=== PATIENT | female | born 1985 | race Hispanic/Latino ===

== ENCOUNTER 2016-10-23 01:26 | Emergency (ER) | payer OTHER ==
[2016-10-23 01:30] VITALS: BMI 25.7
[2016-10-23 01:38] VITALS: BP 100/76; PULSE 78; RESP 18; TEMP 97.5; O2SAT 100
[2016-10-23] MEDS ORDERED: Sodium Chloride 0.9% 1,000 ML IV STA (01:48)
--- NOTE | 2016-10-23 01:52 | ED PDOC ---
Arrival/HPI - General Historian: Patient - History of Present Illness Time/Duration: 1 hour Symptom Onset: Sudden <Sarah Bahena - Last Filed: 10/23/16 03:25> - History of Present Illness Symptom Course: Improving Severity Level: Mild Context: Home <RangelDagoberto - Last Filed: 10/23/16 04:30> - General Chief Complaint: Syncope Time Seen by Provider: 10/23/16 01:37 - History of Present Illness Narrative History of Present Illness (Text): 10/23/16 01:52 31 year old female with no significant past medical history presents to [facility] ED complaining of weakness and an episode of syncope 1 hour ago. Patient reports the symptoms started after she finished having sex with her boyfriend. She felt her legs being heavy at first, then slowly sat down on the floor and eventually loss consciousness. Patient boyfriend witnessed and states patient was unconscious for approximately 20 seconds. Patient states she had just finished her menstrual cycle this morning. Denies having abnormal amount of bleeding during this menstrual cycle. Patient denies having history of seizure or cardiovascular diseases. Patient further denies headache, fever, chills, shortness of breath, chest pain, abdominal pain, pelvic pain, diarrhea, urinary symptoms, nausea or vomiting. (Sarah Bahena) Past Medical History - Provider Review Nursing Documentation Reviewed: Yes - Reproductive Menopause: No - Psychiatric Hx Substance Use: No <Sarah Bahena - Last Filed: 10/23/16 03:25> Family/Social History - Physician Review Nursing Documentation Reviewed: Yes Family/Social History: No Known Family HX Smoking Status: no Hx Alcohol Use: No Hx Substance Use: No <BahenaSarah - Last Filed: 10/23/16 03:25> Allergies/Home Meds <Sarah Bahena - Last Filed: 10/23/16 03:25> <RangelDagoberto - Last Filed: 10/23/16 04:30> Allergies/Adverse Reactions: Allergies No Known Allergies Allergy (Verified 10/23/16 01:30) Review of Systems - Physician Review All systems were reviewed & negative as marked: Yes - Review of Systems Constitutional: absent: Fevers, Night Sweats Eyes: Normal. absent: Vision Changes, Photophobia ENT: Normal. absent: Rhinorrhea, Epistaxis Respiratory: Normal. absent: SOB, Cough, Wheezing Cardiovascular: Syncope. absent: Chest Pain Gastrointestinal: Normal. absent: Abdominal Pain, Constipation, Diarrhea, Nausea, Vomiting Musculoskeletal: Normal. absent: Back Pain, Myalgias Skin: Normal. absent: Rash Neurological: Dizziness. absent: Headache, Seizure Endocrine: Normal. absent: Diaphoresis, Polyuria, Polydipsia Hemo/Lymphatic: Normal Psychiatric: Normal <Sarah Bahena - Last Filed: 10/23/16 03:25> Physical Exam Vital Signs Reviewed: Yes Temperature: Afebrile Blood Pressure: Normal Pulse: Regular Respiratory Rate: Normal Appearance: Positive for: Well-Appearing, Non-Toxic, Comfortable Pain Distress: None Mental Status: Positive for: Alert and Oriented X 3 - Systems Exam Head: Present: Atraumatic, Normocephalic Pupils: Present: PERRL Extroacular Muscles: Present: EOMI Conjunctiva: Present: Normal Mouth: Present: Moist Mucous Membranes Pharnyx: No: ERYTHEMA, EXUDATE Neck: Present: Normal Range of Motion Respiratory/Chest: Present: Clear to Auscultation, Good Air Exchange. No: Respiratory Distress, Accessory Muscle Use Cardiovascular: Present: Regular Rate and Rhythm, Normal S1, S2. No: Murmurs Abdomen: Present: Normal Bowel Sounds. No: Tenderness, Distention, Peritoneal Signs, Guarding, Mass/Organomegaly Back: Present: Normal Inspection Upper Extremity: Present: Normal Inspection, Neurovascularly Intact. No: Cyanosis, Edema Lower Extremity: Present: Normal Inspection, Neurovascularly Intact. No: Edema Neurological: Present: GCS=15, CN II-XII Intact, Speech Normal Skin: Present: Warm, Dry, Normal Color. No: Rashes Psychiatric: Present: Alert, Oriented x 3, Normal Insight, Normal Concentration <Sarah Bahena - Last Filed: 10/23/16 03:25> Vital Signs Temp Pulse Resp BP Pulse Ox 10/23/16 01:30 97.5 F L 78 18 100/76 100 Medical Decision Making <Sarah Bahena - Last Filed: 10/23/16 03:25> <Dagoberto Multani - Last Filed: 10/23/16 04:30> ED Course and Treatment: 10/23/16 02:18 -IVF -EKG -CBC, BMP -UA -Orthostatic BP -Reassess DDx: Vasovagal, dehydration, anemia, hypoglycemia 10/23/16 02:59 Progress note: Patient seen and examined at bedside. Not in acute distress, symptoms resolved. (Sarah Bahena) 10/23/16 04:29 Patient seen and evaluated with resident. Agree with HPI, clinical findings, plan and treatment. Patient is a 31 year old female who presents to the emergency department complaining of generalized weakness and 1 episode of witnessed syncope s/p sexual intercourse. According to boyfriend, who witnessed the syncope, patient was unconscious for about 20 seconds. Ordered EKG, Labs, and urinalysis. Patient feels much better now. Will discharge patient home. Advised to present to emergency department for worsening symptoms and follow up with PMD within few days. (Dagoberto Multani) - Lab Interpretations Lab Results: 10/23/16 02:01 10/23/16 02:01 Lab Results 10/23/16 02:13: Urine Color Yellow, Urine Appearance Clear, Urine pH 6.5, Ur Specific [place] 1.010, Urine Protein Negative, Urine Glucose (UA) Negative, Urine Ketones Negative, Urine Blood Trace-lysed H, Urine Nitrate Negative, Urine Bilirubin Negative, Urine Urobilinogen 0.2, Ur Leukocyte Esterase Negative , Urine RBC 0 - 2, Urine WBC 0 - 2, Ur Epithelial Cells 0 - 2, Urine HCG, Qual Negative 10/23/16 02:01: WBC 9.7, RBC 4.34, Hgb 12.9, Hct 38.0, MCV 87.6, MCH 29.7, MCHC 33.9, RDW 12.5, Plt Count 341, MPV 9.2, Gran % 54.4, Lymph % (Auto) 37.8 H, [place] % (Auto) 4.6, Eos % (Auto) 2.8, Baso % (Auto) 0.4, Gran # 5.28, Lymph # 3.7 H, [place] # 0.5, Eos # 0.3, Baso # 0.04, D-Dimer, Quantitative 0.30, Sodium 138, Potassium 3.6, Chloride 103, Carbon Dioxide 26, Anion Gap 13, BUN 16, Creatinine 0.8, Est GFR ( Amer) > 60, Est GFR (Non-Af Amer) > 60, Random Glucose 100, Calcium 8.8 - EKG Interpretation EKG Interpretation (Text): 10/23/16 03:25 EKG showed NSR @72 bpm with no acute ST changes. Read by me. (Sarah Bahena) - Medication Orders Current Medication Orders: Discontinued Medications Sodium Chloride (Sodium Chloride 0.9%) 1,000 mls @ 999 mls/hr IV .Q1H1M STA Stop: 10/23/16 02:48 Last Admin: 10/23/16 01:48 Dose: 999 MLS/HR eMAR Start Stop Document 10/23/16 01:48 FJA (Rec: 10/23/16 02:24 FJA [id number]) Intravenous Solution Start Date 10/23/16 Start Time 01:48 End Date 10/23/16 End time 02:49 Total Infusion Time 61 <Sarah Bahena - Last Filed: 10/23/16 03:25> - PA / ANNUAL GIVING OFFICER / Resident Statement / has reviewed & agrees with the documentation as recorded. / has examined the patient and agrees with the treatment plan. <Dagoberto Multani - Last Filed: 10/23/16 04:30> - Scribe Statement Stuart Guerrero Provider Scribe Attestation: All medical record entries made by the Scribe were at my direction and personally dictated by me. I have reviewed the chart and agree that the record accurately reflects my personal performance of the history, physical exam, medical decision making, and the department course for this patient. I have also personally directed, reviewed, and agree with the discharge instructions and disposition. (Dagoberto Multani) Disposition/Present on Arrival - Present on Arrival Any Indicators Present on Arrival: No History of DVT/PE: No History of Uncontrolled Diabetes: No Urinary Catheter: No History of Decub. Ulcer: No History Surgical Site Infection Following: None - Disposition Have Diagnosis and Disposition been Completed?: Yes Disposition Time: 03:08 Patient Plan: Discharge <Sarah Bahena - Last Filed: 10/23/16 03:25> <Dagoberto Multani - Last Filed: 10/23/16 04:30> - Disposition Diagnosis: Vasovagal episode Disposition: HOME/ ROUTINE Condition: GOOD Discharge Instructions (ExitCare): Syncope (ED) Additional Instructions: Danielle Leyva, thank you for letting us take care of you today. Your provider was Dr. Multani. You were treated for vasovagal episode. The emergency medical care you received today was directed at your acute symptoms. If you were prescribed any medication, please fill it and take as directed. It may take several days for your symptoms to resolve. Return to the Emergency Department if your symptoms worsen, do not improve, or if you have any other problems. Please contact your doctor or call one of the physicians/clinics you have been referred to that are listed on the Patient Visit Information form that is included in your discharge packet. Bring any paperwork you were given at discharge with you along with any medications you are taking to your follow up visit. Our treatment cannot replace ongoing medical care by a primary care provider (PCP) outside of the emergency department. Thank you for allowing the [facility] team to be part of your care today. If you had an X-Ray or CT scan: A Radiologist will review the ED reading if any change in treatment is needed we will contact you. If you had a blood, urine, or wound culture: It will take several days for the results, if any change in treatment is needed we will contact you. If you had an STI test: It will take 48 hours for the results. Please call after 1 week if you have not heard back.
[2016-10-23 02:09] LABS: ADD MANUAL DIFF? NO
[2016-10-23 02:26] LABS: PH,URINE 6.5 (4.7-8.0); URINE BILIRUBIN NEGATIVE (NEGATIVE); URINE BLOOD TRACE-LYSED (NEGATIVE); URINE GLUCOSE (UA) NEGATIVE (NEGATIVE); URINE KETONE NEGATIVE (NEGATIVE); URINE LEUKOCYTE ESTERASE NEGATIVE Leu/uL (NEGATIVE); URINE PROTEIN NEGATIVE mg/dL (<30 mg/dL); URINE UROBILINOGEN 0.2 E.U./dL (<1 E.U./dL)
[2016-10-23 02:29] LABS: BASO # 0.04 K/mm3 (0.0-2.0); BASO % 0.4 % (0.0-3.0); EOS # 0.3 (0.0-0.7); EOS % 2.8 % (1.5-5.0); GRAN # 5.28 (1.4-6.5); GRAN % 54.4 % (50.0-68.0); LYMPH # 3.7 (1.2-3.4); LYMPH % 37.8 % (22.0-35.0); MEAN CELL VOLUME 87.6 fL (80.0-105.0); MEAN CORPUSCULAR HEMOGLOBIN 29.7 pg (25.0-35.0); MEAN CORPUSCULAR HGB CONC 33.9 g/dl (31.0-37.0); MEAN PLATELET VOLUME 9.2 fl (7.0-11.0); MONO # 0.5 (0.1-0.6); MONO % 4.6 % (1.0-6.0); PLATELET COUNT 341 10^3/uL (120.0-450.0); RED CELL DISTRIBUTION WIDTH 12.5 % (11.5-14.5); WHITE BLOOD COUNT 9.7 10^3/ul (4.5-11.0)
[2016-10-23 02:31] LABS: URINE APPEARANCE CLEAR (CLEAR); URINE COLOR YELLOW (YELLOW)
[2016-10-23 02:31] LABS: BLOOD UREA NITROGEN 16 mg/dL (7-21); CALCIUM 8.8 mg/dL (8.4-10.5); CARBON DIOXIDE 26 mmol/L (21-33); CHLORIDE 103 mmol/L (95-110); GFR AFRICAN-AMERICAN > 60; GLUCOSE,RANDOM 100 mg/dL (70-110); POTASSIUM 3.6 mmol/L (3.6-5.0); SODIUM 138 mmol/L (132-148)
[2016-10-23 02:49] LABS: URINE EPITHELIAL CELLS 0 - 2 /hpf (0-5); URINE RBC 0 - 2 /hpf (0-2); URINE WBC 0 - 2 /hpf (0-6)
--- NOTE | 2016-10-23 11:32 | CARD ---
APPROVED REPORT EKG Measurement Heart [id number] <Conclusion> Normal sinus rhythm Mild NSSTW changes
== END 2016-10-23 03:29 | disposition home or self-care (01) ==
LOC: ED 01:26
DX: R55 Syncope and collapse (principal)
CPT/HCPCS: 80048; 81001; 82948; 84703; 85025; 85378; 93005; 96360; 99285; J7040